=== PATIENT | female | born 1950 | race Caucasian/White ===

== ENCOUNTER 2022-04-04 18:49 | Emergency (ER) | payer MEDICARE, SELFPAY ==
--- NOTE | ~2022-04-04 | CT_ITS ---
EXAMINATION: CT facial & cervical spine wo DATE: 04/04/2022 19:49 INDICATION: Head injury TECHNIQUE: Computed tomography (CT) of the maxillofacial region and cervical spine was performed with out intravenous contrast. The dose-length product (DLP) was 483.65 mGy-cm. Automated exposure control and iterative reconstruction technique were employed. COMPARISON: None FINDINGS: MAXILLOFACIAL CT: No facial bone fracture is identified. There is minimal opacification of the maxillary sinuses. The m astoid air cells are unremarkable. The globes and orbits are unremarkable. CERVICAL SPINE CT: There are 2 mm of anterolisthesis of C2 on C3. There are changes of posterior fusion and laminectomy from C3 through T1 and anterior fusion from C3 through C6. There is no fracture. The odontoid is inta ct. The prevertebral soft tissues are normal. IMPRESSION: 1. No facial fracture identified. 2. Surgical changes of the cervical spine without acute osseous abnormality. Reviewed, dictated and finalized at location F. RVISOR RUBBER COVERING
--- NOTE | ~2022-04-04 | CT_ITS ---
EXAMINATION: CT brain wo con INDICATION: Head injury COMPARISON: None TECHNIQUE: Standard unenhanced head CT. The dose-length product (DLP) was 681.00 mGy-cm. The mA was a djusted according to patient size. Iterative reconstruction technique was employed. FINDINGS: There is no intracranial hemorrhage, acute infarction, or abnormal mass lesion. The ventric les are normal. There is no abnormal mass effect or midline shift. The estrada-white matter differentiat ion is normal. The basal cisterns are patent. The orbits are normal. There is mild mucosal thickening of the paranasal sinuses. IMPRESSION: 1. No acute intracranial abnormality. Reviewed, dictated and finalized at location F. ECT ECONOMIST
[2022-04-04 18:50] VITALS: BP 166/92; PULSE 132; RESP 16; TEMP 36.8; O2SAT 98
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
--- NOTE | 2022-04-04 19:48 | ECG_ITS ---
Rate 81 AZ 150 QRSd 90 QT 380 QTc 443 --[place]-- P 41 QRS 80 T 27 SINUS RHYTHM FREQUENT ATRIAL PREMATURE COMPLEXES NONSPECIFIC T-WAVE ABNORMALITY- ANTERIOR LEADS ABNORMAL ECG NO PREVIOUS ECG AVAILABLE FOR COMPARISON Electronically Signed On 04-04-2022 20:03:25 QUILLER MACHINE FIXER by Paulie GARCIA
[2022-04-04] MEDS: ONDANSETRON HCL ODT 4 MG TABLET PO (19:50)
[2022-04-04] MEDS: MORPHINE SULFATE (*CRX) 4 MG/ML INJ IM (19:51)
--- NOTE | 2022-04-04 19:57 | PC.NURSE ---
Pt returns from CT. infectious waste technician states that pt refused the X-ray to the left shoulder stating she is just stiff. infectious waste technician also states that when pt laid on bed she started c/o dizziness that was made worse after sitting up. Pt is also hooked up to director of cardiac rehabilitation. Pt's rate has slowed but pt is in A-fib. RN calls ERP to update. ERP orders for an EKG which is confirmed by reading the order back to ERP. ERP states he will be out to evaluate pt further.
[2022-04-04 20:00] VITALS: BP 135/79; PULSE 81; RESP 18; O2SAT 97
[2022-04-04] MEDS: PROCHLORPERAZINE EDISYLATE 10 MG/2 ML VIAL IM (20:08)
[2022-04-04 20:18] VITALS: BP 130/73; PULSE 74; RESP 12; O2SAT 97
[2022-04-04 20:42] LABS: Glucose Point of Care 80 mg/dl (65-105)
[2022-04-04 20:45] VITALS: BP 133/71; PULSE 77; RESP 18; O2SAT 96
[2022-04-04 21:02] VITALS: BP 140/83; PULSE 75; RESP 16; TEMP 36.1; O2SAT 97
== END 2022-04-04 21:10 | disposition home or self-care (01) ==
PROVIDERS: Emergency Provider Internal Medicine Critical Care Medicine
DX: M54.2 Cervicalgia (principal); M25.512 Pain in left shoulder; R42 Dizziness and giddiness; V89.2XXA Person injured in unspecified motor-vehicle accident, traffic, initial encounter; E11.9 Type 2 diabetes mellitus without complications; E78.5 Hyperlipidemia, unspecified; I10 Essential (primary) hypertension
CPT/HCPCS: 70450; 70486; 72125; 82948; 93005; 96372; 99284; A9270; J0780; J2270; L0150

== ENCOUNTER 2023-07-20 11:00 | Outpatient (RCR) | payer MEDICARE, SELFPAY ==
[2023-07-09 11:11] LABS: Glucose Point of Care 80 mg/dl (65-105)
[2023-07-09 12:06] LABS: Glucose Point of Care 93 mg/dl (65-105)
[2023-07-11 10:51] LABS: Glucose Point of Care 147 mg/dl (65-105)
[2023-07-13 07:45] LABS: Glucose Point of Care 127 mg/dl (65-105)
[2023-07-20 08:09] LABS: Glucose Point of Care 118 mg/dl (65-105)
== END 2023-07-21 23:59 | disposition home or self-care (01) ==
PROVIDERS: PCP Family Medicine
DX: Z95.5 Presence of coronary angioplasty implant and graft (principal)
CPT/HCPCS: 93798

== ENCOUNTER 2023-07-27 11:00 | Outpatient (RCR) | payer MEDICARE, SELFPAY | END 2023-07-27 14:24 | disposition home or self-care (01) | PROVIDERS: PCP Family Medicine | DX: Z95.5 Presence of coronary angioplasty implant and graft (principal) | CPT/HCPCS: 93798 ==

== ENCOUNTER 2024-05-05 12:22 | Outpatient (CLI) | payer MEDICARE, SELFPAY ==
--- NOTE | ~2024-05-05 | CT_ITS ---
CT abdomen pelvis w con Ordering provider: Mehul Arteaga, History: 73 years Female with . Abdominal Pain . Comparison: None. Technique: CT abdomen and pelvis with IV and without oral contrast. Automated exposure control and it erative reconstruction technique were employed. The dose-length product was 1139.52 mGy-cm. 400 mL Om nipaque 350 was given IV. Findings: VISUALIZED LOWER CHEST: Minimal dependent atelectatic changes. UPPER ABDOMINAL ORGANS: Liver: Hepatomegaly. Fat infiltration. Hypodensity is seen in the left lobe most likely tiny cysts. U ltrasound evaluation advised. Hypodensity adjacent to the interlobar fissure most likely fat infiltra tion. Gallbladder: Status post cholecystectomy. Spleen: Normal. Stomach/duodenum: Normal. Pancreas: Atrophic. Adrenals: Normal. Kidneys: Tiny hypodensities in the left kidney mid and upper pole. Small cysts in the right kidney up per pole. PELVIC ORGANS: The bladder is normal. BOWEL AND MESENTERY: Colon: No evidence of diverticulitis. No evidence of ascites. Small Bowel: Normal. No obstruction. Peritoneum/mesentery: No free air or free fluid. No mesenteric lymphadenopathy. Small mesenteric lymp h nodes. RETROPERITONEUM: Mild atheromatous disease of the abdominal aorta. No retroperitoneal lymphadenopat hy. Small para-aortic lymph nodes. MUSCULOSKELETAL: Superficial soft tissues: The superficial soft tissues are normal. Bones: Age appropriate degenerative changes of the spine. Bilateral sacroiliacs. IMPRESSION: 1. No evidence of appendicitis, diverticulitis or intestinal obstruction. 2. Fat infiltration of the liver with hepatomegaly. Multiple hypodensities in the liver most likely cysts. Ultrasound evaluation advised. 3. Bilateral kidney hypodensities likely cysts. Ultrasound evaluation advised. Reviewed, dictated and finalized at location A. CT SERVICE PROVIDER
[2024-05-05 12:49] LABS: Estimated Glomerular Filt Rate 49
== END 2024-05-05 12:23 | disposition home or self-care (01) ==
LOC: CHSIMG 12:24
PROVIDERS: PCP Family Medicine; Visit Provider Registered Nurse
DX: R10.9 Unspecified abdominal pain (principal); K76.0 Fatty (change of) liver, not elsewhere classified; R16.0 Hepatomegaly, not elsewhere classified
CPT/HCPCS: 74177; Q9967

== ENCOUNTER 2024-06-16 07:07 | Outpatient (CLI) | payer MEDICARE, SELFPAY ==
--- NOTE | ~2024-06-16 | US_ITS ---
US abdomen complete EXAMINATION: US Abdomen Complete INDICATION: Left upper quadrant pain for 3 years PROCEDURE: Realtime High Resolution abdomen ultrasound. COMPARISON: CT dated 05/05/2024 FINDINGS: Gallbladder is surgically absent. Common bile duct measures 6 mm. Liver echotexture within normal limits. There is a small 1 cm cyst of the left hepatic lobe.. Pancre as within normal limits. Pancreatic tail is obscured by bowel gas. Spleen is unremarkeable. Renal e chotexture is within normal limits bilaterally without hydronephrosis, contour deforming mass or kirill l stone. There is a 2 cm cyst of the right kidney. Right kidney measures 10.6 cm. Left kidney measure s 10.8 cm. Visualized aspects of the aorta and IVC are within normal limits. Portal vein is patent. No sonograph ic Fontenot's sign indicated by the technologist. IMPRESSION: 1: Unremarkable abdominal ultrasound. Reviewed, dictated and finalized at location A. LIANCE CLERK
--- OUTSIDE RECORDS SUMMARY | 2024-06-16 07:11 | XMS_ITS | Clinical Summary ---
Author Organization [facility] Address [address] [place] [address]. 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 Gender Identity Not on file Sexual Orientation Not on file Plan of Treatment Health Maintenance Due Date Last Done Comments Colorectal Cancer Screening Colonoscopy (10 Years) 1952 Hepatitis C 1970 Mammogram Screening 1992 Zoster Vaccines (1 of 2) 2002 Annual Medicare Wellness Visit 2017 Dexa Scan (General) 2017 Pneumococcal Vaccine: 65+ Years (2 of 2 - PCV) 2017 04/05/2012 DTaP, Tdap and Td Vaccines (2 - Td or Tdap) 04/17/2022 04/17/2012 COVID-19 Vaccine (3 - season) 2024 08/20/2020, 07/23/2020 Influenza Adult (#1) 2024 02/20/2022, 02/26/2019, 03/04/2018, Additional history exists RSV Immunization or 60+ Years (1 - 1-dose 75+ series) 11/23/2027 Meningococcal B Vaccine Aged Out No l onger eligible based on patient's age to complete this topic Meningococcal Vaccine Aged Out No liya kat eligible based on patient's age to complete this topic RSV Immunizations Under 20 Months Aged Out No longer eligible based on patient's age to complete this topic Insurance MEDICARE [facility] MEDICARE Care Teams Forest Products Gatherer Relationship Specialty Start Date End Date Mehul Arteaga MD [address] [place] [phone] PCP - General FAMILY PRACTICE 11/10/22
--- OUTSIDE RECORDS SUMMARY | 2024-06-16 07:11 | XMS_ITS | Encounter Summary ---
Author Organization [facility] Address [address] [place] [address] Phone Care Team Providers Care Internal Medicine Nurse Practitioner Name Role Phone Mehul Arteaga MD Primary Care Provider Encounter Details Date Type Department Care Team (Latest Contact Info) Description 04/04/2023 Orders Only [facility] Scanning, Provider Social History Tobacco Use Types Packs/Day Years Used Date Smoking Tobacco: Former Cigarettes 0.3 24 1 990 - 05/21/2013 Smokeless Tobacco: Never AUDIT-C Answer Date Recorded Q1: How often do you have a drink containing alc ohol? Monthly or less 11/23/2022 Q2: How many drinks containi ng alcohol do you have on a typical day when you are drinking? 1 or 2 11/23/2022 Q3: How often do you have si x or more drinks on one occasion? Never 11/23/2022 Personal Safety Answer Date Recorded Have you ever been in or are you currently in a harmful physical or emotional relationship or is someone making you feel afraid or unsafe? 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 Gender Identity Not on file Sexual Orientation Not on file Occupation Industry Job Start Date Job End Date Retired Not on file Not on file Not on file documented as of this encounter Plan of Treatment Not on file documented as of this encounter Procedures Procedure Name Priority Date/Time Associated Diagnosis Comments CARDIOLOGY DOCUMENT SCAN 04/04/2023 documented in this encounter Results * CARDIOLOGY DOCUMENT SCAN (04/04/2023) Anatomical Region Laterality Modality Other us Provider Scanning CV CARDIAC SERVICES PROCEDURES Final Result documented in this encounter Visit Diagnoses Not on filedocumented in this encounter Care Teams Internal Medicine Nurse Practitioner Relationship Specialty Start Date End Date Mehul Arteaga MD PCP - General Family Medicine 05/24/22 documented as of this encounter
--- OUTSIDE RECORDS SUMMARY | 2024-06-16 07:11 | XMS_ITS | Continuity of Care Document ---
Author Organization [facility] Address [address] [place] [address] [address] [place] [address] Phone Care Team Providers Care Online Activist Name Role Phone Fine OD, Jacques Unavailable Unavailable Procedures Procedure Date No Charge Glasses Check Progressive Lens, Polycarb Frames Deluxe Tint Photochromatic, Polycarb 0 Anti-reflective Coating Medical Tax Eye Exam, New Patient Dilated Retinal Exam W Interpretation Se No Evidence Of Retinopathy In Prior Year Advance Directives Directive Yes / No Effective Date File Name No Information Encounters Encounter Description Practice Location Reason(s) For Visit Diagnoses Date Provider Providers Copied on Encounter [facility], [address] [place] [address] [address], [place], [place], [id number], tel:[phone] [facility] No Information 8-201 0 Fine OD Jacques. [address] , [address], [place], [address], [place]. tel:[phone] [facility], [address] [place] [address] [address], [place], [place], [id number], [place] tel:[phone] [facility] No Information Jan- 4-201 0 [facility] . [address] [facility], [address], [place], [place], [id number], [place]. tel:[phone] Referring Provider: Celia Griffith, [address], [place], [address]. tel:[phone] Provider: Kimberly Avalos, [address] [facility], [place], [address]. tel:[phone] [facility], [address], [place], [place], [id number], [place] tel:[phone] [facility] No Information 6-201 0 Fine OD Jacques. [address] , [address], [place], [address], [place]. tel:[phone] Referring Provider: Anahi Topete MD, [address] [place] [address], [address]. tel:[phone] Family History Family Member Type Diagnosis Age At Onset No Information Payers Payer name Insurance type Covered constitution party ID Authoriza tion(s) No Information Social History Type Description Quantity Date Captured Comments Sex Female Smoking Status No Information Chief Complaint And Reason For Visit No Information Reason For Referral Reason For Referral No Information History Of Present Illness Encounter Date Complaint History Of Prese nt Illness No Information Functional Status Date Functional Assessmen t No Information Instructions Date Instruction Additional Infor mation No Information Assessments Type Assessment Date No Information Patient Care Teams Name Effective Dates (start - stop) Status Members No Information
--- OUTSIDE RECORDS SUMMARY | 2024-06-16 07:11 | XMS_ITS | Clinical Summary ---
Author Organization [facility] Address [address] [place] [id number] Care Team Providers Care Raspberry Checker Name Role Phone Mehul Arteaga MD Primary Care Provider Allergies Active Allergy Reactions Criticality Noted Date Comments Sulfa (Sulfonamide Antibiotics) Swelling,Swollen tongue High 08/02/2022 Medications furosemide (LASIX) 40 mg tablet Take 1 tablet (40 mg total) by mouth 2 (two) times a day Active atorvastatin (LIPITOR) 40 mg tablet Take 1 tablet (40 mg total) by mouth daily Active metFORMIN (GLUCOPHAGE) 1,000 mg tablet Take 1 tablet (1,000 mg total) by mouth 2 (two) times a day with meals Active liraglutide (VICTOZA) 0.6 mg/0.1 mL (18 mg/3 mL) injectionIndica tions:type 2 diabetes mellitus Inject 0.6 mg under the skin daily Indications: type 2 diabetes mellitus Active insulin glargine 100 unit/mL (3 mL) pen for injection Inject 30 Units under the skin every evening Lantus Active insulin aspart (NovoLOG) 100 unit/mL (3 mL) pen for injection Inject 10 Units under the skin 2 (two) times a day Active lisinopriL (PRINIVIL,ZESTR IL) 20 mg tablet TAKE 1 TABLET(20 MG) BY MOUTH DAILY 90 tablet 3 3 Active aspirin 81 mg chewable tablet Take 1 tablet (81 mg total) by mouth daily 30 tablet 11 3 Active cyanocobalamin, vitamin B-12, (VITAMIN B-12 ORAL) Take by mouth Active multivitamin-mi nerals-lutein tablet Take by mouth Active diphenhydrAMINE 25 mg capsule Take 1 tablet/capsule (25 mg total) by mouth every 6 (six) hours as needed for allergies Active aspirin 81 mg enteric coated tablet TAKE 1 TABLET BY MOUTH DAILY 90 tablet 2 4 Active metoprolol XL (TOPROL-XL) 25 mg extended release tablet Take 2 tablets (50 mg total) by mouth daily 60 tablet 3 4 Active Active Problems Problem Noted Date Diagnosed Date Coronary artery disease 01/29/2023 PVC's (premature ventricular contractions) 01/29 Chest pain 08/23/2022 Overview (08/23/2022): Added automatically from request for surgery [id number] Encounters Date Type Department Care Team Description 06/11/2024 11:15 AM CITY ROUTEMAN Lab [facility] [address] [place] [id number] Dyspnea, unspecified type 06/11/2024 10:15 AM CITY ROUTEMAN Office Visit [facility] Cardiology [facility] Medical Office Building [address] [place] [address] Juan Manuel Carrizales MD Dyspnea, unspecified type (Primary Dx) from Last 3 Months Immunizations Name Administration Dates Next Due Influenza, Quadrivalent, Split, Intramuscular ,02/26/2019 Influenza, Trivalent, High D ose, Split, Preservative Free, Intramuscular 03/04/2018,06/10/2013 Influenza, Trivalent, IM (MDV) 04/03/2014,2011 Influenza, Trivalent, Preservative Free, Intramu scular 02/24/2016,02/03/2015 Pneumococcal Polysaccharide PPV23 04/05/2012 Tdap 04/17/2012 Surgical History Surgery Date Site/Laterality Comments CARDIAC CATHETERIZATION 09/13/2022 CERVICAL SPINE SURGERY Medical History Medical History Date Comments Coronary artery disease Diabetes mellitus (HCC) Hypertension Dyslipidemia PVC's (premature ventricular contractions) Cerebral aneurysm rupture (CMS/HCC) (HCC) repaired in 2014 Hyperlipidemia Aneurysm (CMS/HCC) (HCC) Brain bleed (HCC) Cervical disc disease Chest pain Type 2 diabetes mellitus (HCC) Diverticulitis of colon Osteoporosis Family History Medical History Relation Name Comments Heart attack Other Heart disease Other Relation Name Status Comments Other Social History Tobacco Use Types Packs/Day Years Used Date Smoking Tobacco: Former Cigarettes 0.3 24 1 990 - 05/21/2013 Smokeless Tobacco: Never Tobacco Cessation:Counseling Given: Not Answered AUDIT-C Answer Date Recorded Q1: How often [...] on file Legal Sex Female 9:05 PM CITY ROUTEMAN Gender Identity Not on file Sexual Orientation Not on file Occupation Industry Job Start Date Job End Date Retired Not on file Not on file Not on file Obstetrics History Last Filed Vital Signs Vital Sign Reading Time Taken Comments Blood Pressure 128/72 06/11/2024 10:41 AM CITY ROUTEMAN Pulse 58 06/11/2024 10:41 AM CITY ROUTEMAN Temperature 36.6 ??C (97.9 ??F) 11/24/2022 9:52 AM CD T Respiratory Rate 18 11/14/2023 10:4 9 AM CDT Oxygen Saturation 95% 06/11/2024 10: 41 AM CITY ROUTEMAN Inhaled Oxygen Concentration - - Weight 104.1 kg (229 lb 6.4 oz) 025 10:41 AM CITY ROUTEMAN Height 175.3 cm (5' 9 ) 06/11/2024 10:4 1 AM CITY ROUTEMAN Body Mass Index 33.88 06/11/2024 10:41 AM CITY ROUTEMAN Plan of Treatment Health Maintenance Due Date Last Done Comments Breast Cancer Screening-Mammogram 1952 Colon Cancer Screening-Colonoscopy 1950 Depression Screening 1952 Hepatitis C Screening 1950 Osteoporosis Screening-Bone Density Scan 1952 Hepatitis B Screening 1970 Zoster Vaccine (1 of 2) 2002 Pneumococcal vaccine 65+ (2 of 2 - PCV) 2017 04/05/2012 Well Visit 65+ 2017 DTaP/Tdap/Td Vaccine (2 - Td or Tdap) 04/17/2022 04/17/2012 Fall Risk Assessment 11/25/2023 11/24/2022 Covid-19 Vaccine (4 - 2023-2 5 season) 2024 03/22/2021, 08/20/2020, 07/23/2020 Influenza Vaccine (#1) 2024 2, 02/26/2019, 03/04/2018, Additional history exists Medical Devices Implanted Type Area Sports Anchor Device Identifier Shelf Expiration Date Model / Serial / Lot Medtronic Card Vasc Surgery 2.50 X 34mm Juan Carlos Johnston Rx Coronary Stent [id number] - [id number] Implanted:Qty : 1 on 11/24/2022 by SinJuan Manuel meneses MD at [facility] Stent Right: Coronary Artery Medtronic Card Vasc Surgery 07/18/2025 [id number] / [id number] / [id number] Procedures Procedure Name Priority Date/Time Associated Diagnosis Comments DIFFERENTIAL AUTO Routine 06/11/2024 11: 27 AM CITY ROUTEMAN Dyspnea, unspecified type CBC WITH AUTO DIFFERENTIAL Routine 06/11/2024 11:27 AM CITY ROUTEMAN Dyspnea, unspecified type PRO B-TYPE NATRIURETIC PEPTIDE Routine 06/11/2024 11:27 AM CITY ROUTEMAN Dyspnea, unspecified type from Last 3 Months Results * Differential, auto (06/11/2024 11:27 AM CITY ROUTEMAN) Neutrophil abs 4.4 1.5 - 6.5 K/cumm Imm gran abs 0.0 0.0 - 0.1 K/cumm [facility] Lymphocyte abs 2.8 0.8 - 3.3 K/cumm [facility] Monocyte abs 0.5 0.2 - 0.8 K/cumm [facility] Eosinophil abs 0.2 0.0 - 0.5 K/cumm DEMIAN MARRUFOHEMAL Basophil abs 0.0 0.0 - 0.1 K/cumm DEMIAN KIRBY Neutrophil pct 55.6 % [facility] Comment: Interpretive Data Percent cell count reference ranges are not reported, since discordance with absolute values may lead to misinterpretation of CBC data. Current Interpretive Data was last revised on 2017. Imm gran pct 0.3 % DEMIAN DIAZ Comment: Interpretive Data Percent cell count reference ranges are not reported, since discordance with absolute values may lead to misinterpretation of CBC data. Current Interpretive Data was last revised on 2017. Lymphocyte pct 34.7 % DEMIAN KIRBY Comment: Interpretive Data Percent cell count reference ranges are not reported, since discordance with absolute values may lead to misinterpretation of CBC data. Current Interpretive Data was last revised on 2017. Monocyte pct 6.5 % DEMIAN DIAZ Comment: Interpretive Data Percent cell count reference ranges are not reported, since discordance with absolute values may lead to misinterpretation of CBC data. Current Interpretive Data was last revised on 2017. Eosinophil pct 2.4 % [facility] Comment: Interpretive Data Percent cell count reference ranges are not reported, since discordance with absolute values may lead to misinterpretation of CBC data. Current Interpretive Data was last revised on 2017. Basophil pct 0.5 % [facility] Comment: Interpretive Data Percent cell count reference ranges are not reported, since discordance with absolute values may lead to misinterpretation of CBC data. Current Interpretive Data was last revised on 2017. Blood 06/11/2024 11:2 7 AM CITY ROUTEMAN 06/11/2024 11:58 AM CITY ROUTEMAN us Juan Manuel Carrizales MD LAB BLOOD ORDERABLES Final R esult DEMIAN MARRUFOWCH [address] [facility]. [place] [address] * Pro B-type natriuretic peptide (06/11/2024 11:27 AM CITY ROUTEMAN) NT-proBNP 164 <=300 pg/mL Comment: Interpretive Comments: A. Dyspnea in Acute Care Setting All Ages: ?< 300 pg/ml, acute heart failure unlikely. < 50 yrs: ?300 - 450 pg/ml, further investigation warranted. ? > 450 pg/ml, acute heart failure likely. 50 - 74 yrs: ? 300 - 900 pg/ml, further investigation warranted. ? > 900 pg/ml, acute heart failure likely . > or = 75 yrs: ? 450 - 1800 pg/ml, further investigation warranted. ? > 1800 pg/ml, acute heart failure likely. B. Non-acute Setting < 75 yrs ? < 125 pg/ml, rules out heart failure. ? > or = 125 pg/ml, further investigation warranted. > or = 75 yrs ?< 450 pg/ml, rules out heart failure. ? > or = 450 pg/ml, further investigation warranted. - Knowledge of each individual patient's NT-proBNP range may be more useful than using similar cut-points for every patient. Please note that marked elevations in NT-proBNP levels may be observed in state other than Left Ventricular Congestive Failure, including: acute coronary syndromes, right heart strain/failure (including pulmonary embolism and cor pulmonale), critical illness, renal failure, as well as advanced age. - References: 1. Tessa SOW et.al. Eur Heart J. 2006:27:330-337. 2. Doug ACEVES, Gregorio HERNANDEZ. J. AM Omid Cardiol: Cardiovasc Imag. 2009;2: 216- 225. Interpretive Data Last Revised Date: 2018. Blood 06/11/2024 11:2 7 AM CITY ROUTEMAN 06/11/2024 11:58 AM CITY ROUTEMAN Juan Manuel Carrizales MD LAB BLOOD ORDERABLES Final R esult Performing Organization Address [facility] Co de Phone Number DEMIAN KIRBY [address] [facility] [place] [address] * CBC with auto differential (06/11/2024 11:27 AM CITY ROUTEMAN) WBC 8.0 3.8 - 9.9 K/cumm Hgb 14.5 11.9 - 15.5 g/dL [facility] Hct 43.7 35.6 - 45.5 % [facility] Plt 324 150 - 400 K/cumm [facility] MPV 10.7 9.1 - 12.3 fL [facility] RBC 4.86 3.90 - 5.20 M/cumm [facility] MCV 89.9 81.3 - 96.4 fL [facility] MCH 29.8 27.1 - 33.3 pg [facility] W MCHC 33.2 32.3 - 35.7 g/dL [facility] RDW CV 12.8 11.1 - 14.9 % [facility] RDW SD 42.2 35.7 - 48.1 fL [facility] NRBC abs 0.00 0.00 - 0.01 K/cumm [facility] Blood 06/11/2024 11:2 7 AM CITY ROUTEMAN 06/11/2024 11:58 AM CITY ROUTEMAN Juan Manuel Carrizales MD LAB BLOOD ORDERABLES Final R esult DEMIAN DIAZCH [address] [address] [facility] [employer] [place] [id number] from Last 3 Months Insurance MEDICARE [facility] MEDICARE SUPPLEMENT INSURANCE [place] [id number] MEDICARE [facility] MEDICARE SUPPLEMENT INSURANCE [place] [id number] MEDICARE [employer] MEDICARE SUPPLEMENT INSURANCE Advance Directives For more information, please contact: [phone] * Full Code (Latest Code Status on File) Date Activated Date Inactivated Comments 11/24/2022 1:53 PM 11/24/2022 10:15 PM * Full Code Date Activated Date Inactivated Comments 09/13/2022 7:00 AM 09/14/2022 4:32 AM Care Teams Raspberry Checker Relationship Specialty Start Date End Date Mehul Arteaga MD PCP - General Family Medicine 05/24/22
--- OUTSIDE RECORDS SUMMARY | 2024-06-16 07:11 | XMS_ITS | Referral Summary ---
Author Organization [facility] Address [facility] [place] [address] Care Team Providers Care Camp Attendant Name Role Phone Mehul Arteaga MD Primary Care Provider [phone] Encounters Date Type Department Care Team Description 06/11/2024 11:15 AM LEAD PAINTER Lab [facility] [address] [place] [address] Dyspnea, unspecified type 06/11/2024 10:15 AM LEAD PAINTER Office Visit [facility] Cardiology [facility] Medical Office Building [address] [place] [phone] Juan Manuel Carrizales MD Dyspnea, unspecified type (Primary Dx) from Last 3 Months Allergies Active Allergy Reactions Criticality Noted Date [...] (08/23/2022): Added automatically from request for surgery [id number] Immunizations Name Administration Dates Next Due Influenza, Quadrivalent, Split, Intramuscular ,02/26/2019 Influenza, Trivalent, High D ose, Split, Preservative Free, Intramuscular 03/04/2018,06/10/2013 Influenza, Trivalent, IM (MDV) 04/03/2014,2011 Influenza, Trivalent, Preservative Free, Intramu scular 02/24/2016,02/03/2015 Pneumococcal Polysaccharide PPV23 04/05/2012 Tdap 04/17/2012 Social History Tobacco Use Types Packs/Day Years [...] on file Legal Sex Female 9:05 PM LEAD PAINTER Gender Identity Not on file Sexual Orientation Not on file Occupation Industry Job Start Date Job End Date Retired Not on file Not on file Not on file Last Filed Vital Signs Vital Sign Reading Time Taken Comments Blood Pressure 128/72 06/11/2024 10:41 AM LEAD PAINTER Pulse 58 06/11/2024 10:41 AM LEAD PAINTER Temperature 36.6 ??C (97.9 ??F) 11/24/2022 9:52 AM CD T Respiratory Rate 18 11/14/2023 10:4 9 AM CDT Oxygen Saturation 95% 06/11/2024 10: 41 AM LEAD PAINTER Inhaled Oxygen Concentration - - Weight 104.1 kg (229 lb 6.4 oz) 025 10:41 AM LEAD PAINTER Height 175.3 cm (5' 9 ) 06/11/2024 10:4 1 AM LEAD PAINTER Body Mass Index 33.88 06/11/2024 10:41 AM LEAD PAINTER Plan of Treatment Not on file Medical Devices Implanted Type Area Park Guide Device Identifier Shelf Expiration Date Model / Serial / Lot Medtronic Card Vasc Surgery 2.50 X 34mm [place] Rx Coronary Stent [id number] - [id number] Implanted:Qty : 1 on 11/24/2022 by Juan Manuel Carrizales MD at [facility] Stent Right: Coronary Artery Medtronic Card Vasc Surgery 07/18/2025 [id number] / [id number] 2000 / [id number] Procedures Procedure Name Priority Date/Time Associated Diagnosis Comments DIFFERENTIAL AUTO Routine 06/11/2024 11: 27 AM LEAD PAINTER Dyspnea, unspecified type CBC WITH AUTO DIFFERENTIAL Routine 06/11/2024 11:27 AM LEAD PAINTER Dyspnea, unspecified type PRO B-TYPE NATRIURETIC PEPTIDE Routine 06/11/2024 11:27 AM LEAD PAINTER Dyspnea, unspecified type from Last 3 Months Results * Differential, auto (06/11/2024 11:27 AM LEAD PAINTER) Neutrophil abs 4.4 1.5 - 6.5 K/cumm Imm gran abs 0.0 0.0 - 0.1 K/cumm [facility] Lymphocyte abs 2.8 0.8 - 3.3 K/cumm [facility] Monocyte abs 0.5 0.2 - 0.8 K/cumm [facility] Eosinophil abs 0.2 0.0 - 0.5 K/cumm [facility] Basophil abs 0.0 0.0 - 0.1 K/cumm [facility] Neutrophil pct 55.6 % [facility] Comment: Interpretive Data Percent cell count reference ranges are not reported, since discordance with absolute values may lead to misinterpretation of CBC data. Current Interpretive Data was last revised on 2017. Imm gran pct 0.3 % [facility] Comment: Interpretive Data Percent cell count reference ranges are not reported, since discordance with absolute values may lead to misinterpretation of CBC data. Current Interpretive Data was last revised on 2017. Lymphocyte pct 34.7 % [facility] Comment: Interpretive Data Percent cell count reference ranges are not reported, since discordance with absolute values may lead to misinterpretation of CBC data. Current Interpretive Data was last revised on 2017. Monocyte pct 6.5 % [facility] Comment: Interpretive Data Percent cell count reference ranges are not reported, since discordance with absolute values may lead to misinterpretation of CBC data. Current Interpretive Data was last revised on 2017. Eosinophil pct 2.4 % [facility] Comment: Interpretive Data Percent cell count reference ranges are not reported, since discordance with absolute values may lead to misinterpretation of CBC data. Current Interpretive Data was last revised on 2017. Basophil pct 0.5 % [facility] Comment: Interpretive Data Percent cell count reference ranges are not reported, since discordance with absolute values may lead to misinterpretation of CBC data. Current Interpretive Data was last revised on 2017. Blood 06/11/2024 11:2 7 AM LEAD PAINTER 06/11/2024 11:58 AM LEAD PAINTER us Juan Manuel Carrizales MD LAB BLOOD ORDERABLES Final R esult Performing Organization Address City/State/ZIP Co ca Phone Number DEMIAN ZUCKER [facility] [address] [facility]. Department [place] [employer] [place] [address] * Pro B-type natriuretic peptide (06/11/2024 11:27 AM LEAD PAINTER) NT-proBNP 164 <=300 pg/mL Comment: Interpretive Comments: [...] et.al. Eur Heart J. 2006:27:330-337. 2. Doug RW, Gregorio AM. J. AM Omid Cardiol: Cardiovasc Imag. 2009;2: 216- 225. Interpretive Data Last Revised Date: 2018. Blood 06/11/2024 11:2 7 AM LEAD PAINTER 06/11/2024 11:58 AM LEAD PAINTER Juan Manuel Carrizales MD LAB BLOOD ORDERABLES Final R esult [facility] [address] [facility]. Department [place] [address] * CBC with auto differential (06/11/2024 11:27 AM LEAD PAINTER) Pathologist [facility] WBC 8.0 3.8 - 9.9 K/cumm Hgb 14.5 11.9 - 15.5 g/dL [facility] Hct 43.7 35.6 - 45.5 % [facility] Plt 324 150 - 400 K/cumm [facility] MPV 10.7 9.1 - 12.3 fL [facility] RBC 4.86 3.90 - 5.20 M/cumm [facility] MCV 89.9 81.3 - 96.4 fL [facility] MCH 29.8 27.1 - 33.3 pg [facility] W MCHC 33.2 32.3 - 35.7 g/dL [facility] RDW CV 12.8 11.1 - 14.9 % [facility] RDW SD 42.2 35.7 - 48.1 fL [facility] W NRBC abs 0.00 0.00 - 0.01 K/cumm [facility] Blood 06/11/2024 11:2 7 AM LEAD PAINTER 06/11/2024 11:58 AM LEAD PAINTER Juan Manuel Carrizales MD LAB BLOOD ORDERABLES Final R esult [facility] [address] Department [place] [address] from Last 3 Months Insurance MEDICARE [facility] MEDICARE SUPPLEMENT INSURANCE MEDICARE [facility] MEDICARE SUPPLEMENT INSURANCE MEDICARE [facility] MEDICARE SUPPLEMENT INSURANCE Advance Directives For more information, please contact: [phone] * Full Code (Latest Code Status on File) Date Activated Date Inactivated Comments 11/24/2022 1:53 PM 11/24/2022 10:15 PM * Full Code Date Activated Date Inactivated Comments 09/13/2022 7:00 AM 09/14/2022 4:32 AM Care Teams Camp Attendant Relationship Specialty Start Date End Date Mehul Arteaga MD PCP - General Family Medicine 05/24/22
--- OUTSIDE RECORDS SUMMARY | 2024-06-16 07:11 | XMS_ITS | Encounter Summary ---
Author Organization [facility] Address [address] [place] [address]. [place], [place] [id number] [place] [address] Care Team Providers Care Disk And Tape Machine Tender Name Role Phone Mehul Arteaga MD Primary Care Provider Encounter Details Date Type Department Care Team (Late st Contact Info) Description 10/26/2018 Abstract SFL CONVERSION [address] [place] [address] , Generic Conversion, Social History Tobacco Use Types Packs/Day Years Used Date Smoking Tobacco: Never Assessed Comments Unknown Sex and Gender Information Value Date Recorded Sex Assigned at Not on file Legal Sex Female 9:54 PM SECURITY DISPATCHER Gender Identity Not on file Sexual Orientation Not on file documented as of this encounter Plan of Treatment Not on file documented as of this encounter Visit Diagnoses Not on filedocumented in this encounter Care Teams Disk And Tape Machine Tender Relationship Specialty Start Date End Date Mehul Arteaga MD [address] [place] [id number] PCP - General FAMILY PRACTICE 11/10/22 documented as of this encounter
== END 2024-06-16 07:08 | disposition home or self-care (01) ==
LOC: CHSIMG 07:09
PROVIDERS: PCP Family Medicine; Visit Provider Registered Nurse
DX: R10.9 Unspecified abdominal pain (principal)
CPT/HCPCS: 76700